=== PATIENT | male | born 1990 ===

== ENCOUNTER 2017-01-07 06:19 | Emergency (ER) | payer SELFPAY ==
[2017-01-07 06:27] VITALS: BP 113/81; PULSE 118; RESP 16; TEMP 98.6; O2SAT 95
[2017-01-07] MEDS ORDERED: LIDOCAINE 5% 1 EA PATCH TD ONE (06:51)
--- NOTE | 2017-01-07 07:01 | EDPHY ---
H & P <Frandy Gusman - Last Filed: 01/07/17 15:12> Stated Complaint: fell off roof ~10', low back; R knee, tailbone pain; anxiety; med refill Source: Patient Exam Limitations: No limitations - Personal History Current Tetanus/Diphtheria Vaccine: Yes Current Tetanus Diphtheria and Acellular Pertussis (TDAP): Yes - Medical/Surgical History Hx Asthma: No Hx Chronic Respiratory Disease: No Hx Diabetes: No Hx Cardiac Disease: No Hx Renal Disease: No Hx Cirrhosis: No Hx Alcoholism: No Hx HIV/AIDS: No Hx Splenectomy or Spleen Trauma: No Other PMH: ADHD, anxiety - Social History Smoking Status: Current every day smoker <Kenya Stover - Last Filed: 01/07/17 23:45> Time Seen by Provider: 01/07/17 06:40 HPI/ROS: HPI The patient presents with a fall which occurred at about 3:30 a.m. this morning from a 1 story roof. Was at his grandmother's house, and he says there was a leak in the roof which she was trying to repair. He fell off of a 9 foot ladder , landing on his lower back and buttocks. He has severe aching pain which is moderate in severity and has been constant. He is most comfortable standing, his pain is worse with sitting. He also reports he is feeling very anxious, he was unable to sleep all night. He [place] in [place] he says. He recently lost his 4-year-old son and grandmother and is grieving. He says his primary care doctor in [place] was unable to prescribe his usual psychiatric medications since he moved to [place] and is requesting refills of these. REVIEW OF SYSTEMS Constitutional: No fever, no chills. Eyes: No discharge. ENT: No sore throat. Cardiovascular: No chest pain, no palpitations. Respiratory: No cough, no shortness of breath. Gastrointestinal: No abdominal pain, no vomiting. Genitourinary: No hematuria. Musculoskeletal: Positive for back pain. Skin: No rashes. Neurological: No headache. PMHx: Anxiety, attention deficit hyperactivity disorder Soc Hx: From [place] PHYSICAL General Appearance: Alert, no distress Eyes: Pupils equal and round no pallor or injection ENT, Mouth: Mucous membranes moist Respiratory: There are no retractions, lungs are clear to auscultation Cardiovascular: Regular rate and rhythm Gastrointestinal: Abdomen is soft and non-tender, no masses, bowel sounds normal Neurological: A&O, moves all extremities Skin: Warm and dry, no rashes Musculoskeletal: Neck is supple non tender Back: Tenderness in his lower lumbar spine at the midline, paraspinal tenderness is also present, limited flexion and extension of spine secondary to pain Extremities: symmetrical, full range of motion Psychiatric: Patient is oriented X 3, there is no agitation (Kenya Stover) Constitutional: Initial Vital Signs Temperature (C) 37 C 01/07/17 06:22 Heart Rate 118 H 01/07/17 06:22 Respiratory Rate 16 01/07/17 06:22 Blood Pressure 113/81 H 01/07/17 06:22 O2 Sat (%) 95 01/07/17 06:22 O2 Delivery Mode Room Air Allergies/Adverse Reactions: ketorolac [From Toradol] Allergy (Verified 01/07/17 06:27) Home Medications: Medication Instructions Recorded ALPRAZolam 01/07/17 Adderall 01/07/17 CLONAZEPAM 01/07/17 Medical Decision Making - Diagnostics Imaging: Discussed imaging studies w/ committee member Radiologist <Frandy Gusman - Last Filed: 01/07/17 15:12> <Kenya Stover - Last Filed: 01/07/17 23:45> ED Course/Re-evaluation: 8:00 a.m. I discussed the CT results with the patient. He is very angry that he is not receiving pain medication. I will for his chart to case management. He is also angry that we will not refill his psychiatric medications which she did not bring with him from [place]. He has been [facility] where they can re-evaluate him and refill his medications appropriately. He is ambulating without difficulty. He also has snot running down his face that he will not wipe off. (Frandy Gusman) 7:00 a.m.- The case will be signed out to the oncoming provider Dr. Gusman. (Kenya Stover) Differential Diagnosis: This is a 26-year-old man, visiting from [place], who presents with lower lumbar back pain after a fall from a 9 foot ladder. On exam, he does have point tenderness at the midline of his lower lumbar spine. He has a normal neurologic exam. Differential diagnosis includes spinal fracture, musculoskeletal sprain, muscle spasm. I have ordered a Lidoderm patch for pain. I plan for CT scan of the lumbar spine to evaluate for any fracture. The patient also reports he is feeling quite anxious. I will refer him to [facility]. I have told him that we cannot refill his usual psychiatric medications from the emergency room. (Kenya Stover) - Data Points Medications Given: Discontinued Medications Lidocaine (Lidoderm 5%) 1 ea TD DAILY LASHON Stop: 07/06/17 08:59 Last Admin: 01/07/17 06:55 Dose: 1 ea Departure <Frandy Gusman - Last Filed: 01/07/17 15:12> <Kenya Stover - Last Filed: 01/07/17 23:45> - Departure Disposition: Home, Routine, Self-Care Clinical Impression: Anxiety Lower back pain Qualifiers: Chronicity: acute Back pain laterality: midline Sciatica presence: without sciatica Qualified Code(s): M54.5 - Low back pain Condition: Good Instructions: Low Back Strain (ED) Additional Instructions: Please take Tylenol for your lower back pain. You should follow up with [facility] to have a psychiatric evaluation if your feeling anxious. Referrals: [facility] [Outside] - As per Instructions [facility] [Outside] - As per Instructions
[2017-01-07] MEDS ORDERED: LIDOCAINE 5% 1 EA PATCH TD SCH (09:00)
[2017-01-07] MEDS ORDERED: PATCH REMOVAL 1 EA PATCH TD SCH (21:00)
== END 2017-01-07 08:08 | disposition home or self-care (01) ==
DX: S39.92XA Unspecified injury of lower back, initial encounter (principal); F41.9 Anxiety disorder, unspecified; F17.200 Nicotine dependence, unspecified, uncomplicated; W11.XXXA Fall on and from ladder, initial encounter; Y92.009 Unspecified place in unspecified non-institutional (private) residence as the place of occurrence of the external cause